=== PATIENT | male | born 1950 | race American Indian/Alaskan Native ===

== ENCOUNTER 2018-04-10 14:47 | Outpatient (CLI) | payer MEDICARE ==
--- NOTE | 2018-04-10 15:36 | XRay Report ---
XRAYCERVICAL SPINE THREE VIEWS: 04/10/18 14:47:00 CLINICAL: Pain FINDINGS: Status post surgical fusion at C6-7 with a metallic cage at the disc level. There is complete bony fusion of C6 and C7. Alignment is normal. Straightening of the C-spine. C5-6 degenerative disc disease with narrowing of the disc space and anterior and posterior osteophytes. C7-T1 degenerative disc disease with narrowing of the disc space, superior endplate irregularity T1 and anterior osteophytes. Facet joint sclerosis at C7-T1. No fracture. Normal airway and soft tissues. IMPRESSION: Status post surgical fusion at C6-7 . Moderate degenerative disc disease at C5-6 and C7-T1. Facet joint disease at C7-T1.
== END 2018-04-10 14:48 | disposition home or self-care (01) ==
LOC: SPVIMAG 14:47
DX: M50.322 Other cervical disc degeneration at C5-C6 level (principal); M50.323 Other cervical disc degeneration at C6-C7 level; M12.88 Other specific arthropathies, not elsewhere classified, other specified site
CPT/HCPCS: 72040